=== PATIENT | male | born 1950 | race Caucasian/White ===

== ENCOUNTER 2017-12-02 08:17 | Observation (INO) | payer BC ==
[2017-12-02] MEDS ORDERED: Diazepam TAB(*) 5 MG ONE (08:57)
[2017-12-02] MEDS ORDERED: diPHENhydraMINE PO* 25 MG ONE (08:57)
[2017-12-02] MEDS ORDERED: fentaNYL* 50 MCG/ML 2 ML VIAL (100 MCG VIAL) ONE (09:25)
[2017-12-02] MEDS ORDERED: Heparin(*) 1000 UNIT/ML 10 ML VIAL CATH LAB IV ONE ×2 (09:25→10:01)
[2017-12-02] MEDS ORDERED: VERAPAMIL 2.5 MG/ML 4 ML VIAL ONE (09:25)
[2017-12-02] MEDS ORDERED: Heparin 2 UNITS/ML IVPREMIX* 3,000 ML IV ONE (09:26)
[2017-12-02] MEDS ORDERED: Midazolam* 1 MG/ML 10 ML VIAL (10 MG) ONE (09:26)
[2017-12-02] MEDS ORDERED: nitroGLYCERIN DRIP* 0 MCG/0 ML BTL ONE (09:26)
[2017-12-02] MEDS ORDERED: Lidocaine 1% INJ* 10 MG/ML 30 ML SDV ONE (09:26)
[2017-12-02] MEDS ORDERED: Iodixanol* (CONTRAST) 320 MG/ML 100 ML SDV ONE ×2 (09:27→10:08)
[2017-12-02] MEDS ORDERED: nitroGLYCERIN DRIP* 25,000 MCG/250 ML BTL ONE (10:01)
[2017-12-02] MEDS ORDERED: Bivalirudin(*) 250 MG VIAL ONE ×2 (10:02→10:13)
[2017-12-02] MEDS ORDERED: Ticagrelor* 90 MG TAB PO ONE ×2 (10:06→10:07)
[2017-12-02] MEDS ORDERED: Nitroglycerin TAB 0.4 MG* 0.4 MG TAB SL PRN (10:56)
[2017-12-02] MEDS ORDERED: Ondansetron INJ* 2 MG/ML VIAL IV PRN (11:01)
[2017-12-02] MEDS ORDERED: Zolpidem TAB* 5 MG PO PRN (11:01)
[2017-12-02] MEDS ORDERED: oxyCODONE/Acetamin 5/325 MG* TAB PO PRN (11:01)
[2017-12-02] MEDS ORDERED: Docusate CAP* 100 MG PO PRN (11:01)
[2017-12-02] MEDS ORDERED: Acetaminophen TAB* 325 MG PO PRN (11:01)
[2017-12-02] MEDS: NS 0.9% 1000 ML* 1,000 ML IV SCH ×2 (11:30→12:49)
[2017-12-02] MEDS ORDERED: Metoprolol Succinate XL TAB* 25 MG PO SCH (21:00)
[2017-12-02] MEDS: Ticagrelor* 90 MG TAB PO SCH (21:16)
--- NOTE | 2017-12-03 01:51 | CATH ---
CC: Dr. Lorenzo Tellez; Dr. Candido Bardales, [facility] CARDIAC CATHETERIZATION INTERVENTIONAL REPORT: DATE OF PROCEDURE: 12/02/17 INDICATION FOR PROCEDURE: The patient with significantly abnormal stress test with reversible ischemia to the mid to distal anterior apical region with attempted trial with medical management with continued symptoms at a low workload. The procedure was cardiac catheterization, left ventriculography, left heart catheterization, primary stenting of the mid left anterior descending artery utilizing a 3.0 x 12 mm long synergy drug-eluting stent post dilated to 3.2 mm with high-pressure balloon inflation. DESCRIPTION OF PROCEDURE: The patient was interviewed and examined in the holding area of the hospital where the risks and benefits were explained. He understood them and wished to proceed. The patient was brought into the cardiovascular laboratory where a formal time-out was performed. He was prepped and draped in a sterile fashion. The right radial artery had already been assessed by ultrasound and found to be in acceptable size for an approach and as such, the right radial artery area was prepped and draped in a sterile fashion. It was anesthetized with 1% lidocaine, right radial artery was cannulated and initially, a 6-Gibraltarian Glidesheath was placed. A radial artery cocktail consisting of 300 mcg of nitroglycerin, 3 mg of verapamil and 3000 units of heparin was administered. Cardiac catheterization was then performed utilizing a 5-Gibraltarian TIG4 curve catheter, which was advanced via a [place] guidewire. Left heart catheterization was performed utilizing a 5-Gibraltarian Performa pigtail radial catheter. Left ventriculography was formed utilizing a total of 24 cc of Visipaque dye at a rate of 12 cc per second. The catheter was pulled back to recheck gradient. Following this, the decision was made to intervene into the left anterior descending artery. The patient received an Angiomax bolus and Angiomax drip was started. He received 180 mg of Brilinta orally. Guiding views were initially attempted utilizing a 6- Gibraltarian VL 3.5 curve left coronary guide catheter. This was found to be too long and therefore , a VL 3 curve guide catheter was utilized. Of note, a 25 cm Glidesheath 6- Gibraltarian was exchanged for the short sheath in order to deliver the VL 3 guide catheter. Following this, primary stenting was performed utilizing the 3.0 x 12 long Synergy drug-eluting stent with post dilatations made to a high pressure with a 3.0 x 8 mm long NC Emerge balloon. At the end of the case, the artery was assessed with the wire in place and wire removed. At the end of the case, catheter and sheath were removed and hemostasis was obtained with a Vasc Band. The total contrast used was 150 cc of Visipaque dye. The radiation exposure included 13.9 minutes of fluoro time. The air kerma radiation was 958 milligray. The DAP radiation was 5751 microgray per meter squared. RESULTS: HEMODYNAMIC DATA: Left heart catheterization - central aortic pressure recorded at 103/55 with a mean of 76, left ventricular pressure 103 over left ventricular end diastolic pressure of 16. LEFT VENTRICULOGRAPHY: Performed in the NUNES projection revealed symmetrical contraction of the left ventricle with no focal wall motion abnormalities. The overall EF was approximately 55% to 60%. CORONARY ARTERIOGRAPHY: A. Right coronary artery - a dominant vessel supplying a mid and distal acute marginal branch ending in a PDA and one posterior left ventricular branch. Of note, these branches appeared to be somewhat short in nature extending retirement onto the inferior surface. B. Left coronary artery. 1. Left main - widely patent. 2. Left anterior descending artery - the proximal portion of left anterior descending artery had a mild 30% to 35% blockage. After the first septal torsion spring coiling machine setter, the artery tapered into a 95% blockage. Past this point, there was a mild 30% narrowing seen as the artery continued to the apical region and slowly onto the distal inferior wall. The first diagonal branch was a bifurcating vessel, somewhat small in caliber, but no significant stenosis was seen. The second diagonal branch was a thin artery in nature. The third diagonal branch was a small caliber vessel, again no critical lesions seen. 3. Circumflex artery - a nondominant vessel supplying a thin first, second and third obtuse marginal branch ending in a moderate-sized bifurcating fourth obtuse marginal branch followed by a fifth obtuse marginal branch. No significant stenosis was seen throughout the course of this vessel. INTERVENTION INTO MID LEFT ANTERIOR DESCENDING ARTERY: Successful reduction of critical 90% to 95% mid LAD lesion with primary stenting utilizing a 3.0 x 12 mm long Synergy drug-eluting stent post dilated to 3.2 mm with ELENA-3 flow. No dissection seen and 0% residual stenosis. OVERALL ASSESSMENT: Significant single vessel coronary artery disease involving the mid LAD with a critical stenosis successfully treated with primary stenting with drug- eluting stent. Dual antiplatelet therapy should be continued for a minimum of 6 months or possibly 1 year if patient is stable with no problems with dual antiplatelet agents. Continued statin therapy would be reasonable. Consideration for backing off of his antianginal medications will be pursued, especially with beta-jose in light of his bradycardia and borderline blood pressure. The patient will follow up with Dr. Candido Bardales, his primary medical research assistant, for ongoing cardiac management. [id number]/[facility] #: [id number] [facility]PIT[facility]ima
[2017-12-03 06:00] LABS: ABS Basophils 0 10^3/ul (0-0.2); ABS Eosinophils 0.2 10^3/ul (0-0.6); ABS Lymphocytes 2.1 10^3/ul (1.0-4.8); ABS Monocytes 0.8 10^3/ul (0-0.8); ABS Nucleated RBC 0 10^3/ul; Eosinophil % 2.9 % (0-6); Hematocrit 41 % (42-52); Hemoglobin 14.1 g/dl (14.0-18.0); Lymphocyte % 25.8 % (25-47); Mean Corpuscular HGB Conc 35 g/dl (31-36); Mean Corpuscular Hemoglobin 32 pg (27-31); Mean Corpuscular Volume 93 fL (80-94); Mean Platelet Volume 8 um3 (7.4-10.4); Nucleated Red Blood Cells % 0.1; Platelet Count 227 10^3/ul (150-450); Red Blood Count 4.39 10^6/ul (4.0-5.4); Red Cell Distribution Width 13 % (10.5-15); White Blood Count 8.1 10^3/ul (3.5-10.8)
[2017-12-03 06:29] LABS: EGFR Non-African American 67.9 (>60)
[2017-12-03] MEDS: Ticagrelor* 90 MG TAB PO SCH (08:41)
[2017-12-03] MEDS ORDERED: Atorvastatin* 80 MG TAB PO SCH (09:00)
[2017-12-03] MEDS ORDERED: Aspirin EC Low Dose* 81 MG TAB.EC PO SCH (09:00)
[2017-12-03] MEDS ORDERED: Isosorbide Mononitrate ER TAB* 30 MG PO SCH (09:00)
[2017-12-03 14:28] VITALS: BP 134/73
--- NOTE | 2017-12-03 16:47 | DS ---
DISCHARGE SUMMARY: DATE OF ADMISSION: 12/02/17 DATE OF DISCHARGE: 12/03/17 FINAL DIAGNOSES: 1. Stenotic coronary artery disease. 2. Angina pectoris. 3. Dyslipidemia. HISTORY AND HOSPITAL COURSE: The patient is a pleasant 67-year-old gentleman known to Dr. Candido Bardales, primary instrument setter, on the case, who has been following him for his exertion-related angina pectoris. He has been on medical management, despite that continues to have an abnormal stress test with onset of ischemia at a fairly low workload. As such, he was referred for cardiac catheterization. Cardiac catheterization was performed on 12/02/17 demonstrating a critical mid 90% to 95% LAD lesion, which underwent successful primary stenting utilizing a 3.0 x 12 mm long Synergy drug-eluting stent post dilated to 3.2 mm with ELENA-3 flow, no dissection. He did well overnight, was up and about, and was discharged home. PHYSICAL EXAMINATION: At the day of discharge included blood pressure 118/78, pulse was regular at 55, respirations were 20, O2 saturations 96% on room air, afebrile. Neck was supple. No increased JVP. Carotid with good upstroke and volume without bruits. Conjunctivae were pink. Sclerae clear. Lungs revealed no accessory muscle usage. There were no active rales, rhonchi or wheezes. Heart revealed no visible heaves. No palpable heaves. No thrills. Normal S1, S2 with no S3, S4, or gallop. Borderline bradycardic rate was noted. No significant systolic or diastolic murmur. Abdomen is soft, mildly obese, nontender. Extremities without edema. Neuro: The right radial artery area was well-healed. There was no hematoma. There was good antegrade flow down the artery. Neuro: The patient alert and oriented with normal mentation. Musculoskeletal: The patient moves all extremities appropriately. Psychological: The patient with normal affect. LABORATORY DATA: Laboratory results overnight had revealed MBs that were negative. His discharge BUN and creatinine were 18 and 1.0. His potassium was 3.8. His hemoglobin, hematocrit were 14.1 and 41 with a platelet count of 227, 000. DISCHARGE MEDICATIONS: His medications at the time of discharge included: 1. Aspirin 81 mg and no higher once a day. 2. Isosorbide mononitrate 30 mg once a day. 3. Rosuvastatin 40 mg a day. 4. Ticagrelor 90 mg twice a day. DISCHARGE INSTRUCTIONS: The patient will be following up with Dr. Bardales next week for assessment of his cardiac status and further recommendations. The patient was given a cardiac education booklet in addition to his stent card in addition to referral for cardiac rehab. [id number]/[facility] #: [id number] MTDD
== END 2017-12-03 12:50 | disposition home or self-care (01) ==
LOC: CHICATH 08:17 → ICU 11:23
PROVIDERS: ADMIT Internal Medicine Cardiovascular Disease; ATTEND Internal Medicine Cardiovascular Disease
DX: I25.119 Atherosclerotic heart disease of native coronary artery with unspecified angina pectoris (principal); E78.5 Hyperlipidemia, unspecified; Z79.82 Long term (current) use of aspirin; R00.1 Bradycardia, unspecified; R42 Dizziness and giddiness; Z90.49 Acquired absence of other specified parts of digestive tract; I20.9 Angina pectoris, unspecified
CPT/HCPCS: 36415; 80053; 82553; 85025; 87641; 93005; 93458; A9270-GY; C1725; C1769; C1876; C1887; C9600-LD; G0378; J0583; J1644; J2250; J3010

== ENCOUNTER 2019-01-23 14:48 | Emergency (ER) | payer BC ==
--- NOTE | 2019-01-23 15:38 | UC ---
Lower Extremity/Ankle HPI - HPI Summary HPI Summary: Patient presents to urgent care with left knee pain since Thursday. Patient states he is at the gym doing box steps. Patient states he was stepping down from a [place] with his left leg. Patient states his foot landed too close to the box and he fell back and injuring his left knee. Did not strike head. No LOC. Patient states he felt a popping sensation. Patient states his knee was flexed at this time and very painful. Patient states when he straighten his leg out things "popped back into place "and he felt better. Patient states since this time his knee has not felt completely stable. Patient states when he bends or straightens his leg in-line he has no symptoms. Patient states if he internally rotates he feels discomfort along the medial aspect of his distal quadricep and lateral knee. No calf pain no ankle pain no paresthesias. Patient purchased and [id number] splint that he's been wearing that helps. Patient has taken Tylenol at night. Hasn't applied ice. Patient does not take Motrin as he is totally can't with his cholesterol medication. Patient without a history of left leg pain. Patient states he is walking with a limp. Medications reviewed this visit. - History of Current Complaint Stated Complaint: L KNEE INJURY Time Seen by Provider: 01/23/19 15:37 Hx Obtained From: Patient Onset/Duration: Sudden Onset Severity Initially: Mild Severity Currently: Mild Pain Scale Used: 0-10 Numeric - Allergies/Home Medications Allergies/Adverse Reactions: Allergies Allergy/AdvReac Type Severity Reaction Status Date / Time levofloxacin Allergy See Comment Verified 01/23/19 15:33 Home Medications: Home Medications Acetaminophen TAB* [Tylenol TAB*] 650 mg PO Q4H PRN 01/23/19 [History Confirmed 01/23/19] Icosapent Ethyl [Vascepa] 1 gm PO BID 01/23/19 [History Confirmed 01/23/19] PMH/Surg Hx/FS Hx/Imm Hx Previously Healthy: Yes Endocrine History: Dyslipidemia Cardiovascular History: Hypertension - Surgical History Surgical History: Yes Surgery Procedure, Year, and Place: appe; tonsils; wisdom teeth - Family History Known Family History: Positive: Non-Contributory - Social History Occupation: Employed Full-time Lives: With Family Alcohol Use: Rare Alcohol Amount: between weekly and daily Substance Use Type: None Smoking Status (MU): Former Smoker Type: Cigarettes Amount Used/How Often: 3/4 pack a day Length of Time of Smoking/Using Tobacco: 3years Have You Smoked in the Last Year: No When Did the Patient Quit Smoking/Using Tobacco: 1975 - Immunization History Most Recent Influenza Vaccination: fall 2016 Most Recent Tetanus Shot: 10/19/15 Most Recent Pneumonia Vaccination: has had in the past Review of Systems All Other Systems Reviewed And Are Negative: Yes Skin: Positive: Other - mild left knee swelling. Negative: Bruising Musculoskeletal: Positive: Other: - left knee pain Is Patient Immunocompromised?: No Physical Exam - Summary Physical Exam Summary: Vital Signs Reviewed: Yes A+Ox3, no distress Eyes: Conjunctiva Clear ENT: Hearing grossly normal neck: supple Respiratory: Positive: No respiratory distress, No accessory muscle use Cardiovascular: skin color reflect adequate perfusion 2+ PT, DP CBT < 2 sec Musculoskeletal Exam: ambulates favoring left LE + SLE + flexion knee with discomfort distal quadricep at patella and medial aspect of knee No pain popliteal fossa, calf + flex/ext knee No laxity lateral joint testing, neg anterior/posterior drawer. PT with ttp to direct palpation medial, superior aspect of patella and lateral margin. mild edema, no ecchymosis Neurological: Positive: Alert, ambulatory without difficulty Psychological: Positive: Normal Response To Family Skin: Positive: no rash, no ecchymosis Triage Information Reviewed: Yes Diagnostics - Radiology No standard instances Radiology Interpretation Completed By: Radiologist - Patient Name: SAGAR CARR Medical Record#: [id number] Ordering Physician: Romaine HI Acct.#: [id number] : 1950 Age: 68 Sex: M Location: [facility] Exam Date: 01/23/19 1502 ADM Status: REG ER Order Information: KNEE LEFT 4+ VWS Accession Number: [id number] CPT: 23064 Indication: LEFT knee pain following twisting injury during exercising 3 days ago. Comparison: No relevant prior exams available on the [facility] PACS for comparison. Technique: LEFT knee: AP, tunnel, lateral, sunrise views. REPORT AND IMPRESSION: #. Small suprapatellar joint effusion. Negative for fracture or malalignment. Preserved joint spaces. Unremarkable soft tissue contours. <Electronically signed by Collins Azar MD in OV> 1531 Dictated By: Collins Azar MD Dictated Date/Time: 01/23/19 1531 Transcribed Date/Time: 01/23/19 1527 Copy to: CC:Darrell BROOKS Physicians; Sid Padgett NP; Romaine HI Imaging - [facility] Imaging - [facility] Imaging - [facility] [address] 10 [facility] [address] [address] ph [phone] ph ([phone]) ph ([phone]) This report is only to be considered final once signed by the Provider(s) as displayed in the "<Electronically Signed by >" field (s). Absence of a signature indicates the report is in a draft status and still needs to be finalized. In the event this document was created by someone other than the signing Provider, the individual initiating the document will be listed in the "Entered by:" or "Dictated by:" reyes. 1 of 1 Lower Extremity Course/Dx - Course Course Of Treatment: Patient presents with left knee pain that occurred when he was stepping off of a box stepped on Thursday. Patient states he felt a pop felt to the floor. Patient states he had pain with any flex brace treatment and pain improved. Patient denies any visual deformity. Patient since this time patient has discomfort with internal rotation of his left hip. Pain is along the medial aspect of the knee. Patient with mild edema. No ecchymosis. Patient distally intact. Patient states when his leg is straight any distracting in-line he has no discomfort. Patient's taken Tylenol intermittently for pain. No other analgesia. Patient using [id number] splint for support. Vital signs are stable. On exam patient with tenderness along the medial aspect of the patella as well as insertion of the quadriceps tendon medial edge. Discussed with patient the differential. Patient is an Rhys wrap under his splint that he states helps. Crutches. Patient declined Motrin. Reviewed imaging. Follow-up with orthopedics. Patient comfortable agreement with plan. - Differential Dx/Diagnosis Provider Diagnosis: Left knee pain Discharge - Sign-Out/Discharge Documenting (check all that apply): Patient Departure All imaging exams completed and their final reports reviewed: Yes - Discharge Plan Condition: Stable Disposition: HOME Patient Education Materials: Knee Sprain (ED), Crutch Instructions (ED) Referrals: Riccardo Lackey MD [Medical Doctor] - Sid Padgett NP [Primary Care Provider] - Additional Instructions: As discussed with you today, your provider is concerned you may have injured part of your quadricep muscle/tendon where it meets your kneecap or a ligament supporting the inside of your knee -wear rhys wrap and splint for comfort and support -apply ice, wrapped in a towel - 20 min at a time- every 2-3 hours for the next 2 days -use crutches until you can walk normally without a limp -Elevate your leg - this will help with swelling and pain - Okay to take Tylenol every 6-8 hours for pain -Contact the Orthopedic office tomorrow to schedule a follow-up appointment this week. As discussed, you can request to be evaluated in the [place] or [place] site - Billing Disposition and Condition Condition: STABLE Disposition: Home
[2019-01-23 15:43] VITALS: BP 131/61
== END 2019-01-23 16:20 | disposition home or self-care (01) ==
LOC: UCEAST 14:48
DX: M25.562 Pain in left knee (principal); M25.462 Effusion, left knee; E78.5 Hyperlipidemia, unspecified; I10 Essential (primary) hypertension; Z88.1 Allergy status to other antibiotic agents; Z87.891 Personal history of nicotine dependence
CPT/HCPCS: 99203; G0463

== ENCOUNTER 2019-03-25 11:49 | Emergency (ER) | payer MEDICARE ==
[2019-03-25 12:13] VITALS: BP 118/70
--- NOTE | 2019-03-25 12:14 | UC ---
Skin Complaint HPI - HPI Summary HPI Summary: 68 yo male presents with LEFT great toe pain and swelling. He tells me that he has been having issues with a left knee injury and is seeing Ortho and PT for this, but over the last 3 weeks has noticed worsening pain, redness, and swelling to his left big toe. He denies any specific injury around that time, but did stub his toe 3 days ago. Hurts to bend, weight bear, and touch. He denies DM2. Has been trying to rest, elevate, and ice the area with no relief. - History of Current Complaint Time Seen by Provider: 03/25/19 12:13 Stated Complaint: LEFT GREAT TOE COMPLAINT Hx Obtained From: Patient Onset/Duration: Gradual Onset Timing: Constant Onset Severity: Mild Current Severity: Mild Pain Intensity: 3 Pain Scale Used: 0-10 Numeric - Allergy/Home Medications Allergies/Adverse Reactions: Allergies Allergy/AdvReac Type Severity Reaction Status Date / Time bee venom protein (honey bee) Allergy Severe Anaphylatic Verified 03/25/19 12:14 Shock levofloxacin Allergy Intermediate tendonitis Verified 03/25/19 12:14 Achilles tendon PMH/Surg Hx/FS Hx/Imm Hx - Additional Past Medical History Additional PMH: Angina Cardiovascular History: Cardiac Disease - Surgical History Surgical History: Yes Surgery Procedure, Year, and Place: CARDIAC STENT - 11/2017. APPENDECTOMY. tonsils;. wisdom teeth. Lt PINKY - TENDON RELEASE - Family History Known Family History: Positive: Non-Contributory - Social History Lives: With Family Alcohol Use: Rare Alcohol Amount: between weekly and daily Substance Use Type: None Smoking Status (MU): Never Smoked Tobacco Type: Cigarettes Amount Used/How Often: 3/4 pack a day Length of Time of Smoking/Using Tobacco: 3years Have You Smoked in the Last Year: No When Did the Patient Quit Smoking/Using Tobacco: 1975 - Immunization History Most Recent Influenza Vaccination: fall 2016 Most Recent Tetanus Shot: 10/19/15 Most Recent Pneumonia Vaccination: has had in the past Review of Systems All Other Systems Reviewed And Are Negative: Yes Constitutional: Positive: Negative Skin: Positive: Negative Respiratory: Positive: Negative Cardiovascular: Positive: Negative Neurovascular: Positive: Negative Musculoskeletal: Positive: Other: - left great toe pain Neurological: Positive: Negative Psychological: Positive: Negative Physical Exam - Summary Physical Exam Summary: GENERAL: NAD. WDWN. No pain distress. SKIN: See MSK NECK: Supple. Nontender. No lymphadenopathy. CHEST: No accessory muscle use. Breathing comfortably and in no distress. CV: Pulses intact. Cap refill <2seconds at left great toe MKS: LEFT great toe: Moderate edema and erythema about whole toe extending to MTP. Pain with flexion and moderate palpation at IP and MTP. Mild warmth. No open wound, ulcer, blister, streaking. NEURO: Alert. PSYCH: Age appropriate behavior. Triage Information Reviewed: Yes Vital Signs: Initial Vital Signs Temp 98 F 03/25/19 12:11 Pulse 67 03/25/19 12:11 Resp 16 03/25/19 12:11 BP 118/70 03/25/19 12:11 Pulse Ox 100 03/25/19 12:11 Vital Signs Reviewed: Yes Course/Dx - Course Course Of Treatment: XR: IMPRESSION: No fracture of the left noted. Suspect cellulitis. Will rx for clindamycin and have him f/u with Dr. Resendez at his pre-op on thursday for a recheck - Diagnoses Provider Diagnosis: Cellulitis, toe Discharge - Sign-Out/Discharge Documenting (check all that apply): Patient Departure All imaging exams completed and their final reports reviewed: Yes - Discharge Plan Condition: Critical Disposition: HOME Prescriptions: Clindamycin Cap(NF) [Clindamycin Cap 300 mg Cap(NF)] 300 mg PO TID #21 cap Patient Education Materials: Cellulitis (DC) Referrals: Pina Kincaid MD [Primary Care Provider] - Additional Instructions: If you develop a fever, shortness of breath, chest pain, new or worsening symptoms - please call your PCP or go to the ED immediately. 1) Apply ice to your toe to decrease pain and swelling 2) Please be rechecked at your pre-op appointment with Dr. Resendez in 3 days. - Billing Disposition and Condition Condition: CRITICAL Disposition: Home
== END 2019-03-25 13:09 | disposition home or self-care (01) ==
LOC: UCEAST 11:49
DX: L03.032 Cellulitis of left toe (principal); Z87.891 Personal history of nicotine dependence; Z88.8 Allergy status to other drugs, medicaments and biological substances; Z91.030 Bee allergy status
CPT/HCPCS: 99212; G0463

== ENCOUNTER → 2019-04-07 05:41 | Day surgery (SDC) | payer MEDICARE ==
--- NOTE | 2019-03-07 10:36 | HP ---
Amended report to enter cosigning physician. HISTORY AND PHYSICAL: DATE OF ADMISSION/SURGERY: 03/10/19 SURGEON: Frances Resendez MD* (dictated by SUSSY Roldan) PROCEDURE: Left knee arthroscopy with partial meniscectomy, possible chondroplasty, possible synovectomy, and possible plica excision. Surgery is scheduled for 03/10/19. CHIEF COMPLAINT: Left knee pain. HISTORY OF PRESENT ILLNESS: Mr. Mann is a 68-year-old gentleman who has continued complaints of left knee pain and MRI confirms the meniscus tear. He is elected to proceed with the left knee arthroscopy. PAST MEDICAL HISTORY: Hyperlipidemia and coronary artery disease. PAST SURGICAL HISTORY: Stent placement, appendectomy, tonsillectomy and left hand surgery. CURRENT MEDICATIONS: 1. Aspirin 81 mg a day. 2. Nitroglycerin as needed. 3. EpiPen as needed. 4. Vascepa 1 g twice a day with meals. 5. Magnesium citrate. 6. Rosuvastatin calcium 40 mg a day. 7. Tramadol as needed for pain. ALLERGIES: LEVAQUIN. FAMILY HISTORY: Aortic aneurysm. SOCIAL HISTORY: He is a 68-year-old gentleman, lives with his spouse . He does not smoke or use drugs. He uses occasional alcohol. REVIEW OF SYSTEMS: A complete 14-point review of systems was reviewed with the patient. It was all negative and noncontributory. He denies history of DVT, PE , hepatitis, HIV, or anesthesia problems. PHYSICAL EXAMINATION GENERAL: He is well developed, well nourished, in no acute distress. VITAL SIGNS: He stands 71 inches tall, weighs 219 pounds, blood pressure 130/72 , heart rate 64. HEENT: Normocephalic, atraumatic. NECK: Supple. No palpable lymph nodes. PULMONARY: Lungs are clear to auscultation bilaterally. CARDIO: Regular rate and rhythm. ABDOMEN: Soft, nontender, nondistended. NEUROLOGICAL: He is alert and oriented x3. MUSCULOSKELETAL: Left lower extremity: Skin is intact. There are no open wounds or abrasions. There is a moderate effusion of the left knee joint. He has some tenderness over the medial joint line. Positive Monica's. Positive Apley's. Range of motion is 5 to 110 degrees of flexion with pain beyond 90. He is able to dorsiflex and plantarflex. He has 2+ dorsalis pedis pulse and intact sensation. ASSESSMENT AND PLAN: Mr. Mann is a 68-year-old gentleman with complaints of left knee pain and MRI confirms meniscus tear. He is elected to proceed with a left knee arthroscopy with partial meniscectomy, possible chondroplasty, possible synovectomy, possible plica excision. Surgery is scheduled for with Dr. Resendez. Dr. Resendez discussed the risks and benefits of the surgery at today's visit and all of his questions were answered. He will follow with Dr. Resendez in 2 weeks after the surgery. SUSSY ROLDAN [id number]/[facility] #: [id number] MTDTima
--- NOTE | 2019-03-29 16:29 | HP ---
HISTORY AND PHYSICAL: DATE OF ADMISSION/SURGERY: 04/07/19 DATE OF OFFICE VISIT: 03/28/19 SURGEON: Frances Resendez MD * (DICTATED BY SUSSY ROLDAN) PROCEDURE: Left knee arthroscopy with partial meniscectomy, possible chondroplasty, possible synovectomy and possible plica excision. CHIEF COMPLAINT: Left knee pain. HISTORY OF PRESENT ILLNESS: Mr. Mann is a 68-year-old gentleman with complaints of left knee pain. He has failed conservative treatment, elected to proceed with a left knee arthroscopy. PAST MEDICAL HISTORY: High cholesterol and coronary artery disease. PAST SURGICAL HISTORY: Stent placement, tonsillectomy, appendectomy, left hand surgery, hernia repair. CURRENT MEDICATIONS: 1. Vascepa 1 g two tablets twice daily with meals. 2. Rosuvastatin calcium 40 mg a day. 3. Aspirin 81 mg a day. 4. Nitroglycerin sublingual tablets as needed. ALLERGIES: To LEVAQUIN. FAMILY HISTORY: Abdominal aortic aneurysm. SOCIAL HISTORY: He is a 68-year-old gentleman. He lives with his . He does not smoke or use drugs. He uses occasional alcohol. REVIEW OF SYSTEMS: A complete 14-point review of systems was reviewed with the patient. It was all negative and noncontributory. He denies history of DVT, PE , hepatitis, HIV, or anesthesia problems. PHYSICAL EXAMINATION GENERAL: He is well developed, well nourished, in no acute distress. VITAL SIGNS: He stands 5 feet 11 inches tall, weighs 210 pounds, blood pressure is 109/68, heart rate 67. HEENT: Normocephalic, atraumatic. NECK: Supple. No palpable lymph nodes. PULMONARY: Lungs are clear to auscultation bilaterally. CARDIO: Regular rate and rhythm. Strong S1, S2. ABDOMEN: Soft, nontender, nondistended. NEUROLOGICAL: He is alert and oriented x3. MUSCULOSKELETAL: Left lower extremity. The skin is intact. There are no open wounds or abrasions. There is a moderate effusion of the left knee joint, some tenderness over the medial and lateral joint line. Positive Monica's. Positive Yulia's. Negative Jeremie. Calf is soft and nontender. He is able able dorsiflex and plantar flex and has a 2+ dorsalis pedis pulse. ASSESSMENT AND PLAN: Mr. Mann is a 68-year-old gentleman with complaints of left knee pain. An MRI confirms a meniscus tear. He has elected to proceed with the left knee arthroscopy with partial meniscectomy, possible chondroplasty, possible synovectomy, and possible plica excision and surgery is scheduled for 04/07/[address] Resendez discussed the risks and benefits of the surgery at today's visit. All of his questions were answered. He will follow up with Dr. Resendez 2 weeks after the surgery. SUSSY ROLDAN [id number]/[facility] #: [id number] [place]
[~2019-04-07 05:41] MED LIST: Buffered Lidocaine 1% SYRIN* 1 ML/SYRINGE INTRADERM ONE; Dexamethasone IV* 4 MG/ML 1 ML (4 MG) IV SLOW PU ONE; Dexamethasone IV* 4 MG/ML 1 ML (4 MG) ONE; DiMENhydriNATE IV* 50 MG/ML VIAL IV PUSH PRN; EPHEDrine (Pressors)* 50 MG/ML VIAL ONE; EPINEPHRINE 1 MG/ML 1 ML VIAL ONE; Famotidine IV* 10 MG/ML 2 ML (20 mg) IV ONE; Famotidine IV* 10 MG/ML 2 ML (20 mg) ONE; Ketorolac INJ* 30 MG/ML 1 ML VIAL ONE; Lactated Ringers 1000 ML Bag* 1,000 ML IV SCH; Lidocaine 2% PF * 5 ML VIAL ONE; Midazolam* 1 MG/ML 5 ML VIAL (5 MG) ONE; Naloxone* 0.4 MG/ML 1 ML VIAL IV PRN; Ondansetron INJ* 2 MG/ML VIAL IV PRN; Ondansetron INJ* 2 MG/ML VIAL ONE; Phenylephrine 10 MG/ML VIAL* 1 ML VIAL ONE; Propofol* 10 MG/ML 20 ML BTL ONE; ROPIVACAINE 5 MG/ML 30 ML BTL (0.5%) ONE; Scopolamine 1.5 mg* PATCH TRANSDERM PRN; ceFAZolin 2 GM PREMIX in ORs 2 GM/50 ML BAG IVPB ONE; fentaNYL* 50 MCG/ML 2 ML VIAL (100 MCG VIAL) IV PRN; fentaNYL* 50 MCG/ML 5 ML VIAL (250 MCG VIAL) ONE; methylPREDNISolone ACETATE 80* 80 MG/ML 1 ML VIAL ONE; oxyCODONE/Acetamin 5/325 MG* TAB ONE; oxyCODONE/Acetamin 5/325 MG* TAB PO PRN
[2019-04-07 09:58] VITALS: BP 109/78
--- NOTE | 2019-04-08 08:53 | OP ---
DATE OF OPERATION: 04/07/19 [facility] DATE OF : 54 ATTENDING SURGEON: Frances Resendez MD. TRAUMA THERAPIST: SUSSY Clay. Jordon did help throughout the procedure with preparation of the leg, wound retraction, manipulation of the knee, and wound closure. ANESTHESIOLOGIST: Dr. Murphy. ANESTHESIA: General. PRE-OP DIAGNOSES: Left knee medial meniscal tear, anterior cruciate ligament tear, [id number] osteoarthritis. POST-OP DIAGNOSES: Left knee anterior synovitis, medial meniscal tear, anterior cruciate ligament tear, moderate osteoarthritis. OPERATIVE PROCEDURE: Left knee arthroscopy with partial medial meniscectomy and anterior synovectomy. COMPLICATIONS: None. SPECIMEN: None. ESTIMATED BLOOD LOSS: Less than 25 cc. BRIEF HISTORY/INDICATIONS: Mr. Mann is a 68-year-old gentleman who injured his left knee while exercising several months ago. We did diagnose him with a medial meniscal tear and ACL tear. We had long conversations on ACL reconstruction versus arthroscopy with partial meniscectomy. The patient wished to proceed with minimal arthroscopy and partial meniscectomy with possible synovectomy and chondroplasty. We agreed that due to his age, he would choose to rehab the knee as much as possible conservatively regarding ACL tear and have some risk of accelerated arthritis in the future. Informed consent for the arthroscopy was obtained from the patient. He understood the risks of surgery included, but were not limited to bleeding, infection, damage to nearby structures, continued pain, need for further surgery, retear of the meniscus, instability in the knee, progression of arthritis, anesthesia complications, stroke, heart attack, blood clot, and . He wished to proceed. INTRAOPERATIVE FINDINGS: Intraoperatively, the patient was found to have an ACL tear. The anterior stump was inflamed and did impinge with range of motion. There was the anterior synovitis. There was a medial meniscal tear, longitudinal, in the red-white zone involving the posterior 50% of the medial meniscus. He had some grade 2 and 3 Outerbridge cartilage changes of the medial femoral condyle, grade 3 and 4 in small areas of the patellofemoral compartment. No significant degenerative changes in the lateral compartment. DESCRIPTION OF PROCEDURE: Mr. Mann was identified in the preanesthesia unit. His left lower extremity was marked as the correct operative side. Informed consent was signed and placed in the chart. The patient was taken to the operating room and placed under spinal anesthesia. Left lower extremity was prepped and draped in the usual sterile fashion. Preop time-out was made to correctly identify the patient, side, and site. Appropriate perioperative antibiotics were given within 1 hour of incision. A 1.5 cm standard anterolateral portal incision was made with a 10-blade and carried down to the capsule. As soon as the trocar was introduced, the light and water sources were turned down. A tour of the knee joint was performed. The suprapatellar pouch showed some grade 3 and 4 Outerbridge cartilage changes along the medial patellar facet. Medial gutter showed no obvious loose body or plica. The anterior joint line had significant synovitis and the ACL stump was immediately visualized. This did impinge with range of motion in the condylar notch and patellofemoral compartment. Medial compartment showed some grade 2 and 3 Outerbridge cartilage changes along the medial femoral condyle. There was ribboning of the posterior medial meniscus, indicating a tear. The knee was placed in a [id number] position. The meniscus was without a visible tear. There were no significant degenerative changes in the lateral compartment. Under direct visualization, a medial portal incision was made. A probe was introduced. A second tour of the knee joint was performed. Longitudinal tear in the red-white zone of the posterior half of the medial meniscus was noted. This did displace anteriorly. Shaver and radiofrequency ablation wand were used to excise the ACL stump and anterior synovitis. There was no further impingement with range of motion. Next, a straight biter was used to perform partial medial meniscectomy. A smooth border of the medial meniscus was obtained posteriorly. Further probing of the medial meniscus showed no additional tears or displaced fragments. Shaver and radiofrequency ablation wand were used to further smooth the edge of the meniscus. The knee was copiously irrigated with sterile saline. All instruments were removed. Incisions were closed with 3-0 nylon suture. Intraarticular injection of 80 mg Depo-Medrol and 6 cc of 0.25% Marcaine was placed in the knee joint. Incisions were covered with Xeroform, 4x4s, and Webril. Rhys wrap and cold packs were placed over this. The patient's anesthesia was reversed without difficulty. He was taken to the PACU in stable condition. Intended weightbearing will be weightbearing as tolerated. Intended DVT prophylaxis will be aspirin. [id number]/[facility] #: [id number] [facility]
== END | disposition home or self-care (01) ==
LOC: OR 05:41
PROVIDERS: ATTEND Orthopaedic Surgery Adult Reconstructive Orthopaedic Surgery
DX: S83.242A Other tear of medial meniscus, current injury, left knee, initial encounter (principal); S83.512A Sprain of anterior cruciate ligament of left knee, initial encounter; X50.0XXA Overexertion from strenuous movement or load, initial encounter; Y93.A9 Activity, other involving cardiorespiratory exercise; Y92.9 Unspecified place or not applicable; M65.862 Other synovitis and tenosynovitis, left lower leg; M17.12 Unilateral primary osteoarthritis, left knee; E78.5 Hyperlipidemia, unspecified; I25.10 Atherosclerotic heart disease of native coronary artery without angina pectoris; Z95.5 Presence of coronary angioplasty implant and graft
CPT/HCPCS: A9270-GY; J0690; J1040; J1100; J1885; J2250; J2405; J2704; J2795; J3010